=== PATIENT | male | born 1940 | race Caucasian/White ===

== ENCOUNTER 2022-08-15 10:42 | Emergency (ER) | payer MEDICARE ==
[~2022-08-15] VITALS: Ht 182.9 cm; Wt 90.7 kg
--- NOTE | 2022-08-15 11:26 | NUR ---
Patient BIBA for mechanical fall from [facility]. Patient slipped and fell and he said he "hit his head" on scene. Patient's HR kept going from 90 bpm - 150 bpm. ACLS was called. Patient responsive. Able to follow verbal commands. Will continue to monitor. Received report from OJNATHAN Lizarraga ACLS [id number].
[2022-08-15 11:29] VITALS: BP_SYST 117
[2022-08-15 11:42] LABS: BASOPHILS # (AUTO) 0.1 K/uL (0.0-0.2); BASOPHILS % (AUTO) 0.6 % (0.0-2.0); EOSINOPHILS # (AUTO) 0.2 K/uL (0.0-0.4); EOSINOPHILS % (AUTO) 2.8 % (0.0-4.0); HEMOGLOBIN 13.6 g/dL (14.0-18.0); LYMPHOCYTES % (AUTO) 23.6 % (20.5-51.5); MEAN CORPUSCULAR HEMOGLOBIN 33 pg (27-31); MEAN CORPUSCULAR HGB CONC 35 % (32-36); MEAN CORPUSCULAR VOLUME 95 fL (79.0-98.0); MONOCYTES # (AUTO) 0.5 K/uL (0.0-1.0); MONOCYTES % (AUTO) 6.4 % (1.7-9.3); NEUTROPHILS # (AUTO) 5.6 K/uL (1.8-7.7); NEUTROPHILS % (AUTO) 66.6 % (40.0-70.0); PLATELET COUNT (AUTO) 193 K/uL (130-430); RED CELL DISTRIBUTION WIDTH 15.2 % (9.0-15.0); WHITE BLOOD COUNT (AUTO) 8.4 K/uL (4.8-10.8)
--- NOTE | 2022-08-15 11:45 | NUR ---
PT BIB AMBULANCE-ACLS FROM A RETIRE HOME. PT IS A&Ox3, ABLE TO MAKE NEEDS KNOWN. PT'S CHIEF COMPLAINT IS DYSRHYTHMIA. PT DENIES SOB. PT DENIES N/V/D. PT C/O HEAD PAIN DUE TO A MECHNICAL FALL WHILE WALKING TO BATHROOM. PT STATES HE BECAME DIZZY, FELL AND HIT HIS HEAD. PT DENIES LOSSING CONCIOUSNESS. PT RATES PAIN 7/10. PT HAS A HISTORY OF DIABETES. SAFETY MEASURES IN PLACE.
[2022-08-15 12:06] LABS: ALANINE AMINOTRANSFERASE 7 U/L (12-78); ANION GAP 10 (5-15); ASPARTATE AMINOTRANSFERASE 18 U/L (10-37); CALCIUM 8.3 mg/dL (8.4-11.0); CHLORIDE 105 mmol/L (98-107); CREATININE 0.86 mg/dL (0.55-1.30); GLUCOSE 93 mg/dL (70-99); TOTAL BILIRUBIN 0.6 mg/dL (0.0-1.0); UREA NITROGEN, BLOOD 22 mg/dL (8-21)
--- NOTE | 2022-08-15 13:38 | NUR ---
COVID AND MRSA SWABS OBTAINED AND SENT TO LAB.
--- NOTE | 2022-08-15 13:40 | NUR ---
DR. PETTIT, [place] [facility] DOC, CALLED BACK TO SPEAK TO DR. RENTERIA REGARDING PT STATUS.
[2022-08-15 14:06] LABS: FREE T4 (FREE THYROXINE) 0.9 ng/dL (0.6-1.6); THYROID STIMULATING HORMONE 4.05 uIu/mL (0.34-4.82)
--- NOTE | 2022-08-15 15:25 | NUR ---
TRANSFER INFO [facility] ACCEPTING: DR. BERGER REPORT #: [phone] [facility] ETA 1615 SPOKE TO SARA MONTES [facility] SCREED OPERATOR
--- NOTE | 2022-08-15 15:28 | NUR ---
NOTIFIED DAUGHTER, LOULOU, REGARDING PT TRANSFER INFO AND IS AWARE.
[2022-08-15 15:45] VITALS: BP_SYST 118
--- NOTE | 2022-08-15 16:01 | NUR ---
CALLED [facility] ED, GAVE REPORT TO CHARGE NURSE JAGDISH SIMMONS.
[2022-08-15 16:12] LABS: BILIRUBIN,URINE NEGATIVE (NEGATIVE); BLOOD, URINE 3+ (NEGATIVE); CLARITY/URINE CLEAR (CLEAR); COLOR,URINE YELLOW (YELLOW); GLUCOSE,URINE NEGATIVE (NEGATIVE); KETONES,URINE NEGATIVE (NEGATIVE); LEUKOCYTE ESTERASE ,URINE NEGATIVE (NEGATIVE); NITRITE, URINE NEGATIVE (NEGATIVE); PROTEIN URINE NEGATIVE (NEGATIVE); UROBILINOGEN,URINE 0.2 (0.2-1.0)
[2022-08-15 16:19] LABS: BACTERIA,URINE None Seen /HPF (None Seen); MUCUS,URINE 2+ /LPF (None Seen); RBC,URINE 50-80 /HPF (0-3); WBC,URINE 0-3 /HPF (0-3)
--- NOTE | 2022-08-15 16:52 | NUR ---
Patient to be transferred to [facility] ER. Is being transferred due to higher level of care. Receiving facility has accepting physician and available space. ER DR MENDEZ has signed transfer form. Patient or responsible green party has agreed to transfer and signed form. Patient belongings inventoried and will be sent with patient. Copy of nursing notes, lab reports, EKG, Physicians Orders and X-rays to be sent with patient. Report called to CHARGE NURSE JAGDISH SIMMONS at receiving facility. Receiving physician is DR BERGER. [facility] service has been called for transfer. ETA is 60 MINUTES.
== END 2022-08-15 16:52 | disposition short-term general hospital (02) ==
LOC: SED 10:42
DX: S00.03XA Contusion of scalp, initial encounter (principal); R55 Syncope and collapse; R42 Dizziness and giddiness; I49.9 Cardiac arrhythmia, unspecified; Z79.899 Other long term (current) drug therapy; Z20.822 Contact with and (suspected) exposure to COVID-19; W01.198A Fall on same level from slipping, tripping and stumbling with subsequent striking against other object, initial encounter; Y93.89 Activity, other specified; Y92.89 Other specified places as the place of occurrence of the external cause; Y99.8 Other external cause status
CPT/HCPCS: 36415; 70450-TC; 71045; 76376; 80053; 81000; 83880; 84439; 84443; 84480; 84484; 85025; 87081; 99285

== ENCOUNTER 2024-01-30 15:49 | Emergency (ER) | payer MEDICARE ==
[~2024-01-30] VITALS: Ht 167.6 cm; Wt 73.5 kg
[2024-01-30 15:50] VITALS: BP_SYST 145; PULSE 82; RESP 18; TEMP 98.7; O2SAT 94
[2024-01-30 18:12] VITALS: BP_SYST 113; PULSE 70; RESP 18; TEMP 97.9; O2SAT 98
== END 2024-01-30 18:11 | disposition home or self-care (01) ==
LOC: SED 15:49
DX: S09.90XA Unspecified injury of head, initial encounter (principal); E11.9 Type 2 diabetes mellitus without complications; Z88.5 Allergy status to narcotic agent; Z88.6 Allergy status to analgesic agent; Z88.8 Allergy status to other drugs, medicaments and biological substances; W08.XXXA Fall from other furniture, initial encounter; Y93.89 Activity, other specified; Y92.89 Other specified places as the place of occurrence of the external cause; Y99.8 Other external cause status
CPT/HCPCS: 70450-TC; 99284